=== PATIENT | male | born 1960 | race African-American/Black ===

== ENCOUNTER 2016-09-24 01:42 | Inpatient (IN) | payer MEDICAID, MEDICARE ==
[~2016-09-24] VITALS: Ht 185.4 cm; Wt 84.8 kg
[2016-09-24] MEDS ORDERED: ONDANSETRON HCL 4MG/2ML VIAL IV STA (02:19)
[2016-09-24] MEDS ORDERED: MORPHINE SULFATE 4 MG/ML CPJ (NOT FOR IM USE) IV STA (02:19)
[2016-09-24 02:42] LABS: BASOPHILS % 0.4 % (0.0-2.0); EOSINOPHILS % 0.8 % (0.0-5.0); HEMATOCRIT. 34.6 % (42.0-52.0); LYMPHOCYTES % 22.4 % (20.0-50.0); MEAN CORPUSCULAR HEMOGLOBIN 31.3 pg (28.0-32.0); MEAN CORPUSCULAR VOLUME 90.8 fL (80.0-94.0); MEAN PLATELET VOLUME 8.3 fl (7.4-10.4); MONOCYTES % 9.1 % (2.0-8.0); NEUTROPHILS % 67.3 % (40.0-76.0); PLATELET 122 x1000/uL (130-400); RED BLOOD CELL COUNT 3.82 mill/uL (4.7-6.1); RED CELL DISTRIBUTION WIDTH 15.2 % (11.6-14.6)
[2016-09-24 02:43] LABS: CHLORIDE 108 mEq/L (98-107)
[2016-09-24 02:44] LABS: PROTHROMBIN TIME 10.6 sec
[2016-09-24 02:51] LABS: CARBON DIOXIDE 28 mEq/L (21-32)
[2016-09-24 08:30] VITALS: BP 98/74
[2016-09-24 08:55] VITALS: BP 98/74
[2016-09-24] MEDS ORDERED: IOHEXOL-300 100 ML BOTTLE ONE (09:29)
[2016-09-24] MEDS ORDERED: DIATR MEGLU/DIATRIZOATE SOLN 120ML ONE (09:29)
[2016-09-24] MEDS ORDERED: SODIUM CHLORIDE 0.9% 10ML VIAL ONE (09:29)
[2016-09-24] MEDS ORDERED: PANTOPRAZOLE SODIUM 40 MG/VIAL IV SCH (09:30)
[2016-09-24] MEDS ORDERED: MORPHINE SULFATE 2 MG/ML CPJ (NOT FOR IM USE) IV PRN (09:30)
[2016-09-24] MEDS ORDERED: ONDANSETRON HCL 4MG/2ML VIAL IV PRN (09:30)
[2016-09-24] MEDS ORDERED: DEXT 5%/0.45% NACL KCL 20MEQ/L 1,000 ML IV SCH (10:00)
[2016-09-24] MEDS ORDERED: HYDR-4094 PO (10:32)
[2016-09-24] MEDS ORDERED: HYDR50CA5 PO (10:34)
[2016-09-24] MEDS ORDERED: MIRATAZAPINE PO (10:35)
[2016-09-24] MEDS ORDERED: BUPR100T6 PO (10:37)
[2016-09-24] MEDS ORDERED: SIMV40TA5 PO (10:37)
[2016-09-24] MEDS ORDERED: ATEN50TA PO (10:38)
[2016-09-24] MEDS ORDERED: DOCU-150 PO (10:38)
[2016-09-24] MEDS ORDERED: [UNRECOGNIZED DRUG - OTHER] (10:39)
[2016-09-24] MEDS ORDERED: [UNRECOGNIZED DRUG - OTHER] (10:39)
[2016-09-24] MEDS ORDERED: AMINO ACIDS (10:40)
[2016-09-24 12:00] VITALS: BP 111/75
[2016-09-24] MEDS ORDERED: POTASSIUM CHLORIDE 10MEQ TABLET SR PO SCH (13:15)
[2016-09-24 14:45] LABS: HEMATOCRIT. 34.6 % (42.0-52.0); MEAN CORPUSCULAR HEMOGLOBIN 31.4 pg (28.0-32.0); MEAN CORPUSCULAR VOLUME 90.1 fL (80.0-94.0); PLATELET 105 x1000/uL (130-400); RED BLOOD CELL COUNT 3.84 mill/uL (4.7-6.1); RED CELL DISTRIBUTION WIDTH 14.8 % (11.6-14.6)
[2016-09-24 16:19] VITALS: BP 111/78
[2016-09-24 17:07] LABS: PLATELET ESTIMATE DECREASED
[2016-09-24 17:33] VITALS: BP 111/75
== END 2016-09-24 18:45 | disposition home or self-care (01) | DRG 253 ==
LOC: ER 01:42 → 5WST 06:16 → EDBEDREQ 06:53 → ENRESERV 07:31
PROVIDERS: ADMIT Internal Medicine; ATTEND Internal Medicine
DX: K92.2 Gastrointestinal hemorrhage, unspecified (principal); Z94.84 Stem cells transplant status; I10 Essential (primary) hypertension; E78.00 Pure hypercholesterolemia, unspecified; F17.210 Nicotine dependence, cigarettes, uncomplicated; F12.90 Cannabis use, unspecified, uncomplicated; Z60.2 Problems related to living alone; Z85.72 Personal history of non-Hodgkin lymphomas
CPT/HCPCS: 36415; 74177; 80053; 83690; 85007; 85025; 85027; 85610; 86850; 86900; 96374; 96375; 99285; A4216; C9113; J2270; J2405; Q9963; Q9967

== ENCOUNTER 2016-10-06 23:10 | Emergency (ER) | payer MEDICARE ==
[~2016-10-06] VITALS: Ht 180.3 cm; Wt 82.0 kg
[~2016-10-06 23:10] MED LIST: AMINO ACIDS; ATEN50TA PO; BUPR100T6 PO; DOCU-150 PO; HYDR-4094 PO; HYDR50CA5 PO; MIRATAZAPINE PO; SIMV40TA5 PO; [UNRECOGNIZED DRUG - OTHER]; [UNRECOGNIZED DRUG - OTHER]
[2016-10-07] MEDS ORDERED: FAMOTIDINE 20MG/2ML VIAL IV STA (00:31)
[2016-10-07] MEDS ORDERED: ONDANSETRON HCL 4MG/2ML VIAL IV STA (00:31)
[2016-10-07] MEDS ORDERED: MORPHINE SULFATE 4 MG/ML CPJ (NOT FOR IM USE) IV STA (00:31)
[2016-10-07 01:05] LABS: BASOPHILS % 0.3 % (0.0-2.0); EOSINOPHILS % 0.7 % (0.0-5.0); HEMATOCRIT. 34.1 % (42.0-52.0); HEMOGLOBIN. 11.9 g/dL (14.0-18.0); MEAN CORPUSCULAR HEMOGLOBIN 31.1 pg (28.0-32.0); MEAN CORPUSCULAR VOLUME 89.4 fL (80.0-94.0); MEAN PLATELET VOLUME 8.4 fl (7.4-10.4); MONOCYTES % 9.5 % (2.0-8.0); NEUTROPHILS % 57.5 % (40.0-76.0); PLATELET 105 x1000/uL (130-400); RED BLOOD CELL COUNT 3.81 mill/uL (4.7-6.1); RED CELL DISTRIBUTION WIDTH 14.6 % (11.6-14.6)
[2016-10-07 01:21] LABS: CARBON DIOXIDE 28 mEq/L (21-32); CHLORIDE 107 mEq/L (98-107); TROPONIN I < 0.02 ng/mL (0.00-0.04)
[2016-10-07 04:15] VITALS: BP 130/50
== END 2016-10-07 04:33 | disposition home or self-care (01) ==
LOC: ER 23:19
DX: R07.89 Other chest pain (principal); R07.81 Pleurodynia; R10.9 Unspecified abdominal pain; R05 Cough
CPT/HCPCS: 36415; 71010; 80053; 83690; 84484; 85025; 93005; 96374; 96375; 99285; J2270; J2405; J3490; Z7610

== ENCOUNTER 2017-04-18 15:05 | Emergency (ER) | payer MEDICARE ==
[~2017-04-18] VITALS: Ht 177.8 cm; Wt 100.0 kg
[~2017-04-18 15:05] MED LIST changes: -AMINO ACIDS; +CARI350T PO; -MIRATAZAPINE PO; +MIRT45TA4 PO; +ONDA4TAB5 PO; -[UNRECOGNIZED DRUG - OTHER]; -[UNRECOGNIZED DRUG - OTHER]
[2017-04-18 15:13] VITALS: BP 117/73
== END 2017-04-18 15:39 | disposition left against medical advice (07) ==
LOC: ER 15:11
DX: Z53.21 Procedure and treatment not carried out due to patient leaving prior to being seen by health care provider (principal); E78.00 Pure hypercholesterolemia, unspecified; I10 Essential (primary) hypertension; Z85.72 Personal history of non-Hodgkin lymphomas